=== PATIENT | male | born 1945 | race Hispanic/Latino ===

== ENCOUNTER 2023-10-12 05:55 | Day surgery (SDC) | payer MEDICARE ==
[2023-10-10 12:35] VITALS: BMI 28.8
[2023-10-12] MEDS ORDERED: fentaNYL 50 mcg/mL 1 mL Vial ONE (06:09)
[2023-10-12] MEDS ORDERED: Adenosine 6 mg (2 mL) VIAL ONE (06:09)
[2023-10-12] MEDS ORDERED: Verapamil 5 MG/2 ML VIAL ONE (06:10)
[2023-10-12] MEDS ORDERED: Nitroglycerin 50 MG/250 ML BOT 0 ML ONE (06:10)
[2023-10-12] MEDS ORDERED: Heparin 10,000 UNITS/ 10 ML VIAL ONE (06:10)
[2023-10-12] MEDS ORDERED: Lidocaine 1% (PF) 30 ML VIAL ONE (06:10)
[2023-10-12] MEDS ORDERED: Midazolam HCl 2 mg/2 ml Vial ONE (06:10)
[2023-10-12] MEDS ORDERED: Adenosine 90 mg (30 mL) VIAL ONE (06:16)
[2023-10-12] MEDS ORDERED: Atropine Sulfate 1 mg/10 ml Syringe ONE (07:03)
[2023-10-12] MEDS ORDERED: Protamine Sulfate 50 MG/5 ML VIAL ONE (07:42)
[2023-10-12] MEDS ORDERED: Iopamidol 300 61% 100 ML VIAL FS ONE (12:17)
== END 2023-10-12 12:38 | disposition home or self-care (01) ==
LOC: SDC 05:55
PROVIDERS: ATTEND Internal Medicine Cardiovascular Disease
PROC: 4A023N7 Measurement of Cardiac Sampling and Pressure, Left Heart, Percutaneous Approach (ICD-10-PCS; principal; 2023-10-12)
DX: I25.119 Atherosclerotic heart disease of native coronary artery with unspecified angina pectoris (principal); E78.5 Hyperlipidemia, unspecified; I10 Essential (primary) hypertension; E11.9 Type 2 diabetes mellitus without complications; Z79.84 Long term (current) use of oral hypoglycemic drugs; Z79.899 Other long term (current) drug therapy; Z90.89 Acquired absence of other organs; Z98.890 Other specified postprocedural states
CPT/HCPCS: 85347 ×2; 93454; 93571; C1760; C1769 ×3; C1887; C1894 ×2; J3010; 99152; J0153; J0461; J1644; J2001; J2250; J2720; Q9967

== ENCOUNTER 2023-11-06 08:30 | Inpatient (IN) | payer MEDICARE ==
[2023-11-21] MEDS ORDERED: Dexamethasone 4 mg/ml Vial ONE (06:40)
[2023-11-21] MEDS ORDERED: Bupivacaine PF 0.5% 30 ML VIAL ONE (06:41)
[2023-11-21] MEDS ORDERED: Albumin 5% 500 ML ONE (06:41)
[2023-11-21] MEDS ORDERED: EPINEPHrine 1 MG/ML VIAL ONE (06:41)
[2023-11-21] MEDS ORDERED: PHENYLEPHRINE-NS 100 MCG/ML 10 ML SYRINGE ONE ×2 (06:41→07:05)
[2023-11-21] MEDS ORDERED: Lidocaine 2% PF 5 ML VIAL ONE (06:57)
[2023-11-21] MEDS ORDERED: CEFAZOLIN 1 GM VIAL ONE (06:57)
[2023-11-21] MEDS ORDERED: Lidocaine 2% PF 100 mg/5 ml Syringe ONE ×2 (06:57→07:39)
[2023-11-21] MEDS ORDERED: ePHEDrine Sulfate 50 MG/10 ML VIAL ONE (06:57)
[2023-11-21] MEDS ORDERED: PROPOFOL 20 ML ONE (06:57)
[2023-11-21] MEDS ORDERED: Norepinephrine 4 MG/4 ML VIAL ONE (06:57)
[2023-11-21] MEDS ORDERED: Rocuronium Bromide 10 MG/ML (10ML VIAL) ONE ×2 (06:57→08:27)
[2023-11-21] MEDS ORDERED: Fentanyl 250 MCG/5 ML VIAL ONE (06:57)
[2023-11-21] MEDS ORDERED: Midazolam HCl 2 mg/2 ml Vial ONE (06:58)
[2023-11-21] MEDS ORDERED: Aminocaproic Acid 5 GM/20 ML VIAL ONE ×2 (07:01→07:39)
[2023-11-21] MEDS ORDERED: Heparin 10,000 UNITS/1 ML VIAL 30,000 UNITS in Sodium Chloride 0.9% 1,000 ML FS SCH (07:30)
[2023-11-21] MEDS ORDERED: Calcium Chloride 1 GM/10 ML Abboject SYRINGE ONE (07:39)
[2023-11-21] MEDS ORDERED: Heparin 30,000 units/30 ml VIAL ONE (07:39)
[2023-11-21] MEDS ORDERED: Protamine Sulfate 250 MG/25 ML VIAL ONE (07:39)
[2023-11-21] MEDS ORDERED: Sodium Bicarb 50 mEq/50 ML VIAL ONE (07:39)
[2023-11-21] MEDS ORDERED: Heparin 5,000 UNITS/ML VIAL ONE (07:39)
[2023-11-21] MEDS ORDERED: Vancomycin 1 GM VIAL ONE (07:39)
[2023-11-21] MEDS ORDERED: Mannitol 12.5 GM/50 ML ONE (07:39)
[2023-11-21] MEDS ORDERED: Magnesium 5 GM/10 ML VIAL ONE (07:39)
[2023-11-21] MEDS ORDERED: Albumin 25% 25 GM (100 mL) BOT ONE (07:39)
[2023-11-21] MEDS ORDERED: Papaverine 60 MG/2 ML VIAL ONE (07:39)
[2023-11-21] MEDS ORDERED: Cardioplegic Soln 1,000 ML BAG ONE (07:39)
[2023-11-21] MEDS ORDERED: Potassium Chloride 60 mEq (30 mL) VIAL ONE (07:39)
[2023-11-21] MEDS ORDERED: Thrombin 5000 UNITS/5 ML VIAL ONE (07:39)
[2023-11-21] MEDS ORDERED: fentaNYL 50 mcg/mL 1 mL Vial ONE (08:15)
[2023-11-21] MEDS ORDERED: Esmolol 100 MG/10 ML VIAL ONE (08:17)
[2023-11-21] MEDS ORDERED: Insulin Regular 300 UNITS/3 ML VIAL ONE (09:35)
[2023-11-21] MEDS ORDERED: hydrALAZINE 20 MG/ML VIAL SLOW IVP PRN (12:28)
[2023-11-21] MEDS ORDERED: Hetastarch 6% 500 ML 500 ML IVPB PRN (12:28)
[2023-11-21] MEDS ORDERED: Potassium Chloride 20 MEQ (100 mL) BAG IVPB PRN (12:28)
[2023-11-21] MEDS ORDERED: NOREPINEPHRINE 8 MG/250 ML-D5W 250 ML IVPB PRN (12:28)
[2023-11-21] MEDS ORDERED: Guaifenesin DM 100-10/5 ML UDCUP PO PRN (12:28)
[2023-11-21] MEDS ORDERED: niCARdipine 25 MG in Sodium Chloride 0.9% 250 ML 250 ML IVPB PRN (12:28)
[2023-11-21] MEDS ORDERED: Ipratropium/Albuterol 3 ML NEB NEB PRN (12:28)
[2023-11-21] MEDS ORDERED: Mag-Al 1200 mg/1200 mg/30 ML UDCUP PO PRN (12:28)
[2023-11-21] MEDS ORDERED: Bisacodyl 5 MG TAB PO PRN (12:28)
[2023-11-21] MEDS ORDERED: Albumin 5% 12.5 GM (250 mL) BOT IVPB PRN (12:28)
[2023-11-21] MEDS ORDERED: Bisacodyl 10 MG SUPP PR PRN (12:28)
[2023-11-21] MEDS ORDERED: fentaNYL 50 mcg/mL 1 mL Vial SLOW IVP PRN (12:28)
[2023-11-21 12:59] LABS: Actual Bicarbonate (HCO3a) 20.6 mEq/L (22-28); Base Excess (BEa) -5.3 mEq/L (-2.0 to +3.0); CO2 Tension 41.7 mmHg (35.0-45.0); Calcium, Ionized (arterial) 1.18 mmol/L (1.12-1.30); Carboxyhemoglobin (COHb) 0.3 gm% (0.0-3.0); Hematocrit-ABG 32 % (42.0-52.0); O2 Tension (PaO2), arterial 117.8 mmHg (> 70.0); Potassium - ABG Lab 4.39 mmol/L (3.70-5.30); pH, Arterial 7.312 (7.35-7.45)
[2023-11-21] MEDS ORDERED: Dextrose 5% in Water 1,000 ML IV PRN (13:00)
[2023-11-21] MEDS ORDERED: Glucagon 1 MG/ML KIT SC PRN (13:00)
[2023-11-21] MEDS ORDERED: Dextrose 50% Abboject 50 ML SYRINGE SLOW IVP PRN (13:00)
[2023-11-21 13:01] LABS: ALV-art Gradient 257.875 mmHg (0-20); Puncture Site Arterial Line
[2023-11-21 13:16] LABS: #Neutrophils 14.1 thou/uL (1.40-6.50); %Basophils 0.2 % (0.0-1.0); %Eosinophils 0.2 % (0.0-10.0); %Lymphocytes 10.1 % (21.0-51.0); %Neutrophils 82.9 % (42.0-75.0); Hematocrit 30.3 % (42.0-52.0); Hemoglobin 10.1 g/dL (14.0-18.0); Mean Corpuscular HGB CONC 33.3 g/dL (32.0-36.0); Mean Corpuscular Hemoglobin 31.7 pg (27.0-31.0); Mean Platelet Volume 9.8 fL (7.4-10.4); Platelet Count 189 10x3/uL (130-400); RBC Distribution Width 12.8 % (11.5-14.5); Red Blood Cell (RBC) Count 3.19 mill/uL (4.70-6.10)
[2023-11-21] MEDS: Post-Op Insulin Drip Protocol IVPB ONE (13:28)
[2023-11-21] MEDS: Insulin Regular 300 UNITS/3 ML VIAL SC PRN (13:29)
[2023-11-21] MEDS: NOREPINEPHRINE 8 MG/250 ML-D5W 250 ML ONE (13:29)
[2023-11-21] MEDS: Sodium Chloride 0.9% 1,000 ML IV SCH (13:29)
[2023-11-21] MEDS: Magnesium 2 GM/50 ML(in water) 2 GM in Premix 1 BAG IVPB SCH (13:32)
[2023-11-21 13:35] LABS: INR-International Normal Ratio 1.4; Prothrombin Time 17.3 sec (12.0-14.7)
[2023-11-21 13:36] LABS: PTT 45.9 sec (22.9-36.1)
[2023-11-21 13:41] LABS: Anion Gap 9 mmol/L (10-20); BUN (Urea Nitrogen) 14 mg/dL (8.4-25.7); Calc. Creatinine Clearance 66 mL/min (70-130); Calcium 8.1 mg/dL (7.8-10.44); Carbon Dioxide 23 mmol/L (23-31); Chloride 113 mmol/L (98-107); Estimated GFR 69; Glucose 171 mg/dL (83-110); Potassium 4.4 mmol/L (3.5-5.1); Sodium 141 mmol/L (136-145)
[2023-11-21] MEDS: fentaNYL 50 mcg/mL 1 mL Vial SLOW IVP PRN (14:07)
[2023-11-21 14:09] LABS: Analyzer IN Cardio OR; Base Excess (BEa) -3.7 mEq/L (-2.0 to +3.0); CO2 Tension 42.6 mmHg (35.0-45.0); Calcium, Ionized (arterial) 1.01 mmol/L (1.12-1.30); Carboxyhemoglobin (COHb) 0.3 gm% (0.0-3.0); Hematocrit-ABG 28 % (42.0-52.0); Hemoglobin (Hb) 9.6 g/dL (14.0-18.0); O2 Tension (PaO2), arterial 327.2 mmHg (> 70.0); Potassium - ABG Lab 5.78 mmol/L (3.70-5.30); pH, Arterial 7.331 (7.35-7.45)
[2023-11-21 14:09] LABS: Actual Bicarbonate (HCO3a) 21.5 mEq/L (22-28); Analyzer IN Cardio OR; Base Excess (BEa) -3.2 mEq/L (-2.0 to +3.0); CO2 Tension 37.4 mmHg (35.0-45.0); Carboxyhemoglobin (COHb) 0.4 gm% (0.0-3.0); Hematocrit-ABG 38 % (42.0-52.0); O2 Tension (PaO2), arterial 447.7 mmHg (> 70.0); Potassium - ABG Lab 4.89 mmol/L (3.70-5.30); pH, Arterial 7.377 (7.35-7.45)
[2023-11-21 14:09] LABS: Actual Bicarbonate (HCO3a) 20.7 mEq/L (22-28); Analyzer IN Cardio OR; Base Excess (BEa) -3.7 mEq/L (-2.0 to +3.0); CO2 Tension 35.7 mmHg (35.0-45.0); Calcium, Ionized (arterial) 1.16 mmol/L (1.12-1.30); Carboxyhemoglobin (COHb) 0.5 gm% (0.0-3.0); Hematocrit-ABG 40 % (42.0-52.0); Hemoglobin (Hb) 13.7 g/dL (14.0-18.0); Potassium - ABG Lab 4.38 mmol/L (3.70-5.30); pH, Arterial 7.381 (7.35-7.45)
[2023-11-21 14:09] LABS: Actual Bicarbonate (HCO3a) 23.8 mEq/L (22-28); Analyzer IN Cardio OR; Base Excess (BEa) -2.2 mEq/L (-2.0 to +3.0); CO2 Tension 45.9 mmHg (35.0-45.0); Calcium, Ionized (arterial) 0.96 mmol/L (1.12-1.30); Carboxyhemoglobin (COHb) 0.3 gm% (0.0-3.0); Hematocrit-ABG 30 % (42.0-52.0); Hemoglobin (Hb) 10.3 g/dL (14.0-18.0); O2 Tension (PaO2), arterial 302.7 mmHg (> 70.0); Potassium - ABG Lab 4.97 mmol/L (3.70-5.30); pH, Arterial 7.332 (7.35-7.45)
[2023-11-21] MEDS: Nitroglycerin 50 MG/250 ML BOT 250 ML IVPB PRN (14:09)
[2023-11-21 14:10] LABS: Actual Bicarbonate (HCO3a) 18.7 mEq/L (22-28); Analyzer IN Cardio OR; Base Excess (BEa) -6.7 mEq/L (-2.0 to +3.0); CO2 Tension 36.8 mmHg (35.0-45.0); Calcium, Ionized (arterial) 1.12 mmol/L (1.12-1.30); Hematocrit-ABG 33 % (42.0-52.0); Hemoglobin (Hb) 11.1 g/dL (14.0-18.0); O2 Tension (PaO2), arterial 227.5 mmHg (> 70.0); Potassium - ABG Lab 4.15 mmol/L (3.70-5.30); pH, Arterial 7.324 (7.35-7.45)
[2023-11-21 14:10] LABS: Actual Bicarbonate (HCO3a) 22.2 mEq/L (22-28); Analyzer IN Cardio OR; Base Excess (BEa) -3.5 mEq/L (-2.0 to +3.0); CO2 Tension 42.8 mmHg (35.0-45.0); Calcium, Ionized (arterial) 1.17 mmol/L (1.12-1.30); Carboxyhemoglobin (COHb) 0.5 gm% (0.0-3.0); Hematocrit-ABG 28 % (42.0-52.0); Hemoglobin (Hb) 9.4 g/dL (14.0-18.0); O2 Tension (PaO2), arterial 227.8 mmHg (> 70.0); Potassium - ABG Lab 4.36 mmol/L (3.70-5.30); pH, Arterial 7.332 (7.35-7.45)
[2023-11-21 14:10] LABS: Actual Bicarbonate (HCO3a) 23.3 mEq/L (22-28); Analyzer IN Cardio OR; Base Excess (BEa) -3.2 mEq/L (-2.0 to +3.0); CO2 Tension 48.7 mmHg (35.0-45.0); Calcium, Ionized (arterial) 1.03 mmol/L (1.12-1.30); Carboxyhemoglobin (COHb) 0.3 gm% (0.0-3.0); Hematocrit-ABG 29 % (42.0-52.0); O2 Tension (PaO2), arterial 265.1 mmHg (> 70.0); Potassium - ABG Lab 5.08 mmol/L (3.70-5.30); pH, Arterial 7.298 (7.35-7.45)
[2023-11-21 14:10] LABS: Puncture Site Arterial Line
[2023-11-21 14:11] LABS: Puncture Site Arterial Line
[2023-11-21 14:11] LABS: Puncture Site Arterial Line
[2023-11-21 14:11] LABS: Puncture Site Arterial Line
[2023-11-21 14:12] LABS: Puncture Site Arterial Line
[2023-11-21 14:12] LABS: Puncture Site Arterial Line
[2023-11-21 14:12] LABS: Puncture Site Arterial Line
[2023-11-21] MEDS: CEFAZOLIN 2 GM in Sodium Chloride 0.9% 100 ML IVPB SCH ×2 (14:37→16:23)
[2023-11-21] MEDS: Protamine Sulfate 50 MG/5 ML VIAL SLOW IVP SCH (15:13)
[2023-11-21 15:56] LABS: Actual Bicarbonate (HCO3a) 18.7 mEq/L (22-28); Base Excess (BEa) -6.7 mEq/L (-2.0 to +3.0); CO2 Tension 37.3 mmHg (35.0-45.0); Calcium, Ionized (arterial) 1.15 mmol/L (1.12-1.30); Carboxyhemoglobin (COHb) 0.4 gm% (0.0-3.0); Hematocrit-ABG 34 % (42.0-52.0); Hemoglobin (Hb) 11.6 g/dL (14.0-18.0); O2 Tension (PaO2), arterial 105.6 mmHg (> 70.0); Potassium - ABG Lab 4.33 mmol/L (3.70-5.30); pH, Arterial 7.319 (7.35-7.45)
[2023-11-21] MEDS: HUMULIN R 100 UNITS in Sodium Chloride 0.9% 100 ML IVPB SCH (15:56)
[2023-11-21 16:07] LABS: #Monocytes 0.7 thou/uL (0.11-0.59); #Neutrophils 16.3 thou/uL (1.40-6.50); %Basophils 0.2 % (0.0-1.0); %Eosinophils 0.2 % (0.0-10.0); %Lymphocytes 5.9 % (21.0-51.0); %Monocytes 3.9 % (0.0-10.0); %Neutrophils 89.3 % (42.0-75.0); Hematocrit 33.8 % (42.0-52.0); Hemoglobin 11.2 g/dL (14.0-18.0); Mean Corpuscular HGB CONC 33.1 g/dL (32.0-36.0); Mean Corpuscular Hemoglobin 31.4 pg (27.0-31.0); Mean Corpuscular Volume 94.7 fl (78.0-98.0); Mean Platelet Volume 9.8 fL (7.4-10.4); Platelet Count 232 10x3/uL (130-400); RBC Distribution Width 13.1 % (11.5-14.5); Red Blood Cell (RBC) Count 3.57 mill/uL (4.70-6.10); White Blood Cell (WBC) Count 18.2 10x3/uL (4.8-10.8)
[2023-11-21 16:09] LABS: ALV-art Gradient 132.975 mmHg (0-20); Puncture Site Arterial Line
[2023-11-21] MEDS: Albumin 5% 12.5 GM (250 mL) BOT IVPB PRN (16:14)
[2023-11-21 19:07] LABS: Hemoglobin 9.7 g/dL (14.0-18.0)
[2023-11-21 19:22] LABS: Potassium 4.2 mmol/L (3.5-5.1)
[2023-11-21] MEDS: Atorvastatin Calcium 10 MG TAB PO SCH (20:08)
[2023-11-21] MEDS: Famotidine/PF 20 mg/2ml Vial SLOW IVP SCH (20:08)
[2023-11-22] MEDS: HYDROcodone/Acetaminophen 5/325 mg Tablet PO PRN ×2 (00:24→06:46)
[2023-11-22] MEDS: Ondansetron PF 4 MG/2 ML Vial IVP PRN (03:28)
[2023-11-22 04:49] LABS: #Monocytes 1.5 thou/uL (0.11-0.59); #Neutrophils 15.5 thou/uL (1.40-6.50); %Basophils 0.1 % (0.0-1.0); %Lymphocytes 7.1 % (21.0-51.0); %Monocytes 8.2 % (0.0-10.0); Mean Corpuscular HGB CONC 32.3 g/dL (32.0-36.0); Mean Corpuscular Hemoglobin 30.9 pg (27.0-31.0); Mean Corpuscular Volume 95.7 fl (78.0-98.0); Mean Platelet Volume 10.1 fL (7.4-10.4); Platelet Count 231 10x3/uL (130-400); RBC Distribution Width 13.2 % (11.5-14.5); Red Blood Cell (RBC) Count 3.24 mill/uL (4.70-6.10); White Blood Cell (WBC) Count 18.5 10x3/uL (4.8-10.8)
[2023-11-22 05:02] LABS: Anion Gap 10 mmol/L (10-20); BUN (Urea Nitrogen) 15 mg/dL (8.4-25.7); Calc. Creatinine Clearance 61 mL/min (70-130); Carbon Dioxide 25 mmol/L (23-31); Chloride 112 mmol/L (98-107); Estimated GFR 60; Glucose 173 mg/dL (83-110); Potassium 4.5 mmol/L (3.5-5.1); Sodium 142 mmol/L (136-145)
[2023-11-22] MEDS ORDERED: Bisacodyl 5 MG TAB PO PRN (06:55)
[2023-11-22] MEDS ORDERED: Artificial Tear Sol 15 ML BOT EA EYE PRN (06:55)
[2023-11-22] MEDS ORDERED: Nitroglycerin 0.4 MG TAB (25 Tab Bottle) SL PRN (06:55)
[2023-11-22] MEDS ORDERED: Mineral Oil ENEMA PR PRN (06:55)
[2023-11-22] MEDS ORDERED: diphenhydrAMINE 25 MG CAP PO PRN (06:55)
[2023-11-22] MEDS ORDERED: Zolpidem Tartrate 5 MG TAB PO PRN (06:55)
[2023-11-22] MEDS ORDERED: Guaifenesin DM 100-10/5 ML UDCUP PO PRN (06:55)
[2023-11-22] MEDS ORDERED: Mag-Al 1200 mg/1200 mg/30 ML UDCUP PO PRN (06:55)
[2023-11-22] MEDS ORDERED: Bisacodyl 10 MG SUPP PR PRN (06:55)
[2023-11-22] MEDS: Tamsulosin HCl 0.4 MG CAP PO SCH (08:10)
[2023-11-22] MEDS: Famotidine 20 MG TAB PO SCH (08:10)
[2023-11-22] MEDS: Metoprolol Tartrate 25 MG TAB PO SCH (08:10)
[2023-11-22] MEDS: Aspirin 325 mg Enteric Coated Tablet PO SCH (08:10)
[2023-11-22] MEDS: Promethazine HCl 25 MG/ML VIAL IM PRN (08:29)
[2023-11-22] MEDS ORDERED: Aspirin Chewable 81 MG TAB PO SCH (09:00)
[2023-11-22] MEDS: Ipratropium/Albuterol 3 ML NEB NEB SCH (10:21)
[2023-11-22] MEDS ORDERED: Insulin Glargine 30 UNITS/0.3 ML VIAL SC PRN (12:52)
[2023-11-22 22:39] VITALS: BMI 31.6
[2023-11-23 05:20] LABS: #Monocytes 1.3 thou/uL (0.11-0.59); #Neutrophils 13.2 thou/uL (1.40-6.50); %Basophils 0.2 % (0.0-1.0); %Eosinophils 0.2 % (0.0-10.0); %Lymphocytes 15.8 % (21.0-51.0); %Monocytes 7.4 % (0.0-10.0); %Neutrophils 75.9 % (42.0-75.0); Hematocrit 29.2 % (42.0-52.0); Hemoglobin 9.3 g/dL (14.0-18.0); Mean Corpuscular HGB CONC 31.8 g/dL (32.0-36.0); Mean Corpuscular Hemoglobin 31.4 pg (27.0-31.0); Mean Corpuscular Volume 98.6 fl (78.0-98.0); Mean Platelet Volume 10.3 fL (7.4-10.4); Platelet Count 204 10x3/uL (130-400); RBC Distribution Width 13.9 % (11.5-14.5); Red Blood Cell (RBC) Count 2.96 mill/uL (4.70-6.10); White Blood Cell (WBC) Count 17.4 10x3/uL (4.8-10.8)
[2023-11-23 05:37] LABS: Anion Gap 10 mmol/L (10-20); BUN (Urea Nitrogen) 21 mg/dL (8.4-25.7); Calc. Creatinine Clearance 56 mL/min (70-130); Calcium 8.2 mg/dL (7.8-10.44); Carbon Dioxide 23 mmol/L (23-31); Chloride 110 mmol/L (98-107); Estimated GFR 55; Glucose 181 mg/dL (83-110); Potassium 4.6 mmol/L (3.5-5.1); Sodium 138 mmol/L (136-145)
[2023-11-23] MEDS: Senokot S 8.6-50 MG TAB PO SCH (07:50)
[2023-11-23] MEDS: Furosemide 20 MG (2 mL) VIAL SLOW IVP SCH (07:50)
[2023-11-23] MEDS: Metoprolol Tartrate 25 MG TAB PO SCH (07:50)
[2023-11-23] MEDS ORDERED: PROPOFOL 0 ML ONE ×2 (11:32→12:07)
[2023-11-23] MEDS ORDERED: Lidocaine 1% PF 5 ML VIAL ONE (11:32)
[2023-11-23] MEDS ORDERED: fentaNYL PF 100 MCG/2 ML SYRINGE ONE (12:08)
[2023-11-24 04:16] LABS: #Eosinphils 0.2 thou/uL (0.0-0.7); #Neutrophils 10.7 thou/uL (1.40-6.50); %Basophils 0.2 % (0.0-1.0); %Eosinophils 1.4 % (0.0-10.0); %Lymphocytes 14.5 % (21.0-51.0); %Monocytes 7.4 % (0.0-10.0); %Neutrophils 76.1 % (42.0-75.0); Hematocrit 28.9 % (42.0-52.0); Hemoglobin 9.1 g/dL (14.0-18.0); Mean Corpuscular HGB CONC 31.5 g/dL (32.0-36.0); Mean Corpuscular Hemoglobin 30.3 pg (27.0-31.0); Mean Corpuscular Volume 96.3 fl (78.0-98.0); Mean Platelet Volume 9.8 fL (7.4-10.4); Platelet Count 210 10x3/uL (130-400); RBC Distribution Width 13.8 % (11.5-14.5)
[2023-11-24 04:42] LABS: Phosphorus 2.4 mg/dL (2.3-4.7)
[2023-11-24 04:43] LABS: Anion Gap 10 mmol/L (10-20); BUN (Urea Nitrogen) 24 mg/dL (8.4-25.7); Calc. Creatinine Clearance 59 mL/min (70-130); Calcium 8.1 mg/dL (7.8-10.44); Carbon Dioxide 26 mmol/L (23-31); Chloride 106 mmol/L (98-107); Estimated GFR 61; Glucose 186 mg/dL (83-110); Magnesium 2.2 mg/dL (1.6-2.6); Potassium 4.4 mmol/L (3.5-5.1); Sodium 138 mmol/L (136-145)
[2023-11-24] MEDS: Acetaminophen 325 MG TAB PO PRN (13:56)
[2023-11-24] MEDS: FLU VACC QS2023(65UP)/MF59C/PF 60 MCG/0.5 ML SYRINGE IM ONE (14:21)
[2023-11-25 06:03] LABS: #Eosinphils 0.3 thou/uL (0.0-0.7); #Neutrophils 8.9 thou/uL (1.40-6.50); %Basophils 0.2 % (0.0-1.0); %Eosinophils 2.3 % (0.0-10.0); %Lymphocytes 18.7 % (21.0-51.0); %Monocytes 7.5 % (0.0-10.0); %Neutrophils 70.6 % (42.0-75.0); Hematocrit 28.7 % (42.0-52.0); Hemoglobin 9.4 g/dL (14.0-18.0); Mean Corpuscular HGB CONC 32.8 g/dL (32.0-36.0); Mean Corpuscular Hemoglobin 31.2 pg (27.0-31.0); Mean Corpuscular Volume 95.3 fl (78.0-98.0); Platelet Count 283 10x3/uL (130-400); RBC Distribution Width 13.4 % (11.5-14.5); Red Blood Cell (RBC) Count 3.01 mill/uL (4.70-6.10); White Blood Cell (WBC) Count 12.6 10x3/uL (4.8-10.8)
[2023-11-25 06:31] LABS: Anion Gap 10 mmol/L (10-20); BUN (Urea Nitrogen) 19 mg/dL (8.4-25.7); Calc. Creatinine Clearance 65 mL/min (70-130); Calcium 8.6 mg/dL (7.8-10.44); Carbon Dioxide 26 mmol/L (23-31); Chloride 104 mmol/L (98-107); Estimated GFR 69; Glucose 151 mg/dL (83-110); Potassium 4.4 mmol/L (3.5-5.1); Sodium 136 mmol/L (136-145)
[2023-11-25] MEDS: Metoprolol Tartrate 25 MG TAB PO SCH ×2 (09:59→21:18)
[2023-11-26 06:38] LABS: #Eosinphils 0.5 thou/uL (0.0-0.7); #Monocytes 1.1 thou/uL (0.11-0.59); #Neutrophils 7.6 thou/uL (1.40-6.50); %Basophils 0.3 % (0.0-1.0); %Lymphocytes 19.7 % (21.0-51.0); %Monocytes 9.1 % (0.0-10.0); %Neutrophils 66.1 % (42.0-75.0); Hematocrit 31.3 % (42.0-52.0); Hemoglobin 10.2 g/dL (14.0-18.0); Mean Corpuscular HGB CONC 32.6 g/dL (32.0-36.0); Mean Corpuscular Hemoglobin 30.6 pg (27.0-31.0); Mean Platelet Volume 9.8 fL (7.4-10.4); Platelet Count 338 10x3/uL (130-400); RBC Distribution Width 13.4 % (11.5-14.5); Red Blood Cell (RBC) Count 3.33 mill/uL (4.70-6.10); White Blood Cell (WBC) Count 11.5 10x3/uL (4.8-10.8)
[2023-11-26 06:58] LABS: Anion Gap 8 mmol/L (10-20); BUN (Urea Nitrogen) 20 mg/dL (8.4-25.7); Calc. Creatinine Clearance 59 mL/min (70-130); Calcium 8.6 mg/dL (7.8-10.44); Carbon Dioxide 30 mmol/L (23-31); Chloride 104 mmol/L (98-107); Estimated GFR 63; Glucose 140 mg/dL (83-110); Potassium 4.4 mmol/L (3.5-5.1); Sodium 138 mmol/L (136-145)
[2023-11-26] MEDS: metFORMIN 500 MG TAB PO SCH (08:52)
[2023-11-26 12:04] VITALS: BP 120/56; TEMP 98.5
== END 2023-11-26 13:51 | disposition home or self-care (01) | DRG 236 ==
LOC: SURG A 11-21 06:20 → CCU 11-21 13:00 → 2NO 11-24 21:27
PROVIDERS: ADMIT Student in an Organized Health Care Education/Training Program; ATTEND Student in an Organized Health Care Education/Training Program
PROC: 02100Z9 Bypass Coronary Artery, One Artery from Left Internal Mammary, Open Approach (ICD-10-PCS; principal; 2023-11-21)
PROC: 021109W Bypass Coronary Artery, Two Arteries from Aorta with Autologous Venous Tissue, Open Approach (ICD-10-PCS; 2023-11-21)
PROC: 06BQ4ZZ Excision of Left Saphenous Vein, Percutaneous Endoscopic Approach (ICD-10-PCS; 2023-11-21)
PROC: 5A1221Z Performance of Cardiac Output, Continuous (ICD-10-PCS; 2023-11-21)
PROC: 02L70CK Occlusion of Left Atrial Appendage with Extraluminal Device, Open Approach (ICD-10-PCS; 2023-11-21)
PROC: 4A133R1 Monitoring of Arterial Saturation, Peripheral, Percutaneous Approach (ICD-10-PCS; 2023-11-21)
PROC: 30233J1 Transfusion of Nonautologous Serum Albumin into Peripheral Vein, Percutaneous Approach (ICD-10-PCS; 2023-11-21)
PROC: 3E033XZ Introduction of Vasopressor into Peripheral Vein, Percutaneous Approach (ICD-10-PCS; 2023-11-21)
DX: I25.110 Atherosclerotic heart disease of native coronary artery with unstable angina pectoris (principal); N17.9 Acute kidney failure, unspecified; E78.5 Hyperlipidemia, unspecified; M51.36 Other intervertebral disc degeneration, lumbar region; Z79.899 Other long term (current) drug therapy; Z90.49 Acquired absence of other specified parts of digestive tract; Z98.890 Other specified postprocedural states; Z83.3 Family history of diabetes mellitus; Z01.818 Encounter for other preprocedural examination
CPT/HCPCS: 36415; 36416; 71045; 71046; 80048; 82805; 83735; 84100; 85025; 85027; 85610; 85730; 86850; 86900; 86901; 93005; 93010; 93798; 94002; 94640; A4311; A4648; C1751; J0171; J0665; J0690; J1100; J1642; J1644; J1815; J1940; J2001; J2150; J2250; J2405; J2440; J2550; J2704; J2720; J3010; J3370; J3475; J3480; J3490; J7050; J7620; P9045; P9047; S0017; S0028

== ENCOUNTER 2023-11-20 09:07 | Outpatient (CLI) | payer MEDICARE ==
[2023-11-20 10:58] LABS: Hematocrit 43.4 % (38.8-50.0); Hemoglobin 14.9 g/dL (13.5-17.5); Mean Corpuscular HGB CONC 34.3 g/dL (32.0-36.0); Mean Corpuscular Hemoglobin 31.7 pg (27.0-33.0); Mean Corpuscular Volume 92.3 fl (81.2-95.1); Mean Platelet Volume 9.8 fl (7.4-10.4); Platelet Count 338 10x3/uL (150-450); RBC Distribution Width 12.6 % (11.5-14.5); White Blood Cell (WBC) Count 9.5 10x3/uL (3.5-10.5)
[2023-11-20 11:31] LABS: Anion Gap 15 mmol/L (10-20); BUN (Urea Nitrogen) 16 mg/dL (8.4-25.7); Calc. Creatinine Clearance 0 mL/min (70-130); Calcium 9.4 mg/dL (7.8-10.44); Carbon Dioxide 24 mmol/L (23-31); Chloride 104 mmol/L (98-107); Estimated GFR 56; Glucose 138 mg/dL (83-110); Potassium 5.2 mmol/L (3.5-5.1); Sodium 138 mmol/L (136-145)
== END 2023-11-20 09:08 | disposition home or self-care (01) ==
LOC: LABBT 09:07
PROVIDERS: ATTEND Student in an Organized Health Care Education/Training Program
DX: Z01.818 Encounter for other preprocedural examination (principal); I25.10 Atherosclerotic heart disease of native coronary artery without angina pectoris
CPT/HCPCS: 71046; 80048; 85027; 86850; 86900; 86901; 93005; 93010

== ENCOUNTER 2024-10-31 20:33 | Inpatient (IN) | payer MEDICARE ==
[2024-10-31] MEDS ORDERED: NOREPINEPHRINE 8 MG/250 ML-D5W 250 ML IVPB SCH (23:45)
[2024-10-31] MEDS: Sodium Chloride 0.9% 1,000 ML IV SCH (23:46)
[2024-10-31] MEDS ORDERED: Acetaminophen 325 MG TAB PO PRN (23:52)
[2024-10-31] MEDS ORDERED: Ondansetron PF 4 MG/2 ML Vial IVP PRN (23:52)
[2024-11-01] MEDS ORDERED: Ipratropium/Albuterol 3 ML NEB NEB PRN (00:08)
[2024-11-01] MEDS ORDERED: Dextrose 5% in Water 1,000 ML IV PRN (00:13)
[2024-11-01] MEDS ORDERED: Dextrose 50% Abboject 50 ML SYRINGE SLOW IVP PRN (00:13)
[2024-11-01] MEDS ORDERED: Insulin Lispro 100 UNIT/ML 10 ML VIAL SC PRN ×2 (00:13)
[2024-11-01] MEDS ORDERED: Glucagon 1 MG/ML KIT IM PRN (00:13)
[2024-11-01] MEDS: Sodium Chloride 0.9% 1,000 ML IV SCH (01:40)
[2024-11-01 03:49] VITALS: BMI 31.2
[2024-11-01 04:06] LABS: Hematocrit 35.1 % (42.0-52.0); Hemoglobin 11.4 g/dL (14.0-18.0); Mean Corpuscular HGB CONC 32.5 g/dL (32.0-36.0); Mean Corpuscular Hemoglobin 29.6 pg (27.0-31.0); Mean Corpuscular Volume 91.2 fL (78.0-98.0); Mean Platelet Volume 9.6 fL (7.4-10.4); Platelet Count 282 10x3/uL (130-400); RBC Distribution Width 14.8 % (11.5-14.5); Red Blood Cell (RBC) Count 3.85 mill/uL (4.70-6.10)
[2024-11-01 04:23] LABS: Lactic Acid 1.16 mmol/L (0.50-2.20)
[2024-11-01 04:23] LABS: ALT (SGPT) 9 U/L (Less than 45); AST (SGOT) 16 U/L (11-34); Albumin 2.7 g/dL (3.1-4.5); Alkaline Phosphatase 59 U/L (40-110); Anion Gap 12 mmol/L (10-20); BUN (Urea Nitrogen) 19 mg/dL (8.4-25.7); Bilirubin, Total 0.6 mg/dL (0.3-1.2); Calc. Creatinine Clearance 54 mL/min (70-130); Calcium 7.8 mg/dL (7.8-10.44); Carbon Dioxide 21 mmol/L (23-31); Chloride 110 mmol/L (98-107); Estimated GFR 56; Globulin 3.3 g/dL (2.4-3.5); Glucose 122 mg/dL (83-110); Potassium 3.9 mmol/L (3.5-5.1); Sodium 139 mmol/L (136-145)
[2024-11-01 04:35] LABS: Band 28 % (5-11); Hypochromia SLIGHT = 6-15 cells HPF (0-5); Lymphocytes 6 % (21-51); Metamyelocyte 1 % (0-0); Monocytes 3 % (0-10); Neutrophil 63 % (42-75); Platelet Adequacy Comment Platelets Normal; Polychromasia SLIGHT = 2-3 cells HPF (0-2)
[2024-11-01 04:38] LABS: Legionella Urinary Ag Negative (Negative); Strep pneumo Urine Ag NEGATIVE (NEGATIVE)
[2024-11-01] MEDS: Sodium Chloride 0.9% 500 ML IVPB SCH (05:08)
[2024-11-01] MEDS: Albumin 25% 25 GM (100 mL) BOT IVPB SCH (06:13)
[2024-11-01] MEDS: Heparin 5,000 UNITS/ML VIAL SC SCH (08:16)
[2024-11-01] MEDS: cefTRIAXone\\ROCEPHIN 2 GM in Sodium Chloride 0.9% 100 ML IVPB SCH (08:16)
[2024-11-01] MEDS: Azithromycin 500 MG in Sodium Chloride 0.9% 250 ML 250 ML IVPB SCH (16:13)
[2024-11-01] MEDS: Polyvinyl Alcohol 1.4%/Povidone 0.6% Opth Drops EA EYE SCH (23:18)
[2024-11-02 05:29] LABS: #Basophils 0.05 10x3/uL (0.0-0.2); %Basophils 0.3 % (0.0-1.0); %Eosinophils 0.8 % (0.0-10.0); %Lymphocytes 9.8 % (21.0-51.0); %Monocytes 3.5 % (0.0-10.0); Hematocrit 37.2 % (42.0-52.0); Hemoglobin 12.1 g/dL (14.0-18.0); Mean Corpuscular HGB CONC 32.5 g/dL (32.0-36.0); Mean Corpuscular Hemoglobin 29.4 pg (27.0-31.0); Mean Corpuscular Volume 90.3 fL (78.0-98.0); Platelet Count 245 10x3/uL (130-400); RBC Distribution Width 14.9 % (11.5-14.5); Red Blood Cell (RBC) Count 4.12 mill/uL (4.70-6.10)
[2024-11-02 05:52] LABS: ALT (SGPT) 11 U/L (Less than 45); AST (SGOT) 18 U/L (11-34); Albumin 2.8 g/dL (3.1-4.5); Alkaline Phosphatase 72 U/L (40-110); Anion Gap 15 mmol/L (10-20); BUN (Urea Nitrogen) 15 mg/dL (8.4-25.7); Bilirubin, Total 0.3 mg/dL (0.3-1.2); Calc. Creatinine Clearance 67 mL/min (70-130); Calcium 8.3 mg/dL (7.8-10.44); Carbon Dioxide 17 mmol/L (23-31); Chloride 111 mmol/L (98-107); Estimated GFR 71; Globulin 3.3 g/dL (2.4-3.5); Glucose 123 mg/dL (83-110); Potassium 3.9 mmol/L (3.5-5.1); Protein, Total 6.1 g/dL (5.8-8.1); Sodium 139 mmol/L (136-145)
[2024-11-02] MEDS: Primidone 50 MG TAB PO SCH (20:53)
[2024-11-02] MEDS: Atorvastatin Calcium 10 MG TAB PO SCH (20:54)
[2024-11-03 06:10] LABS: #Basophils 0.05 10x3/uL (0.0-0.2); %Basophils 0.5 % (0.0-1.0); %Eosinophils 2.8 % (0.0-10.0); %Lymphocytes 17.1 % (21.0-51.0); %Monocytes 4.7 % (0.0-10.0); %Neutrophils 74.3 % (42.0-75.0); Hematocrit 39.6 % (42.0-52.0); Mean Corpuscular HGB CONC 32.8 g/dL (32.0-36.0); Mean Corpuscular Volume 88.2 fL (78.0-98.0); Mean Platelet Volume 9.6 fL (7.4-10.4); Platelet Count 316 10x3/uL (130-400); RBC Distribution Width 14.5 % (11.5-14.5); Red Blood Cell (RBC) Count 4.49 mill/uL (4.70-6.10)
[2024-11-03 06:27] LABS: ALT (SGPT) 17 U/L (Less than 45); AST (SGOT) 21 U/L (11-34); Alkaline Phosphatase 83 U/L (40-110); Anion Gap 14 mmol/L (10-20); BUN (Urea Nitrogen) 16 mg/dL (8.4-25.7); Bilirubin, Total 0.4 mg/dL (0.3-1.2); Calc. Creatinine Clearance 66 mL/min (70-130); Calcium 8.9 mg/dL (7.8-10.44); Carbon Dioxide 19 mmol/L (23-31); Chloride 110 mmol/L (98-107); Estimated GFR 70; Globulin 3.9 g/dL (2.4-3.5); Glucose 139 mg/dL (83-110); Potassium 3.7 mmol/L (3.5-5.1); Protein, Total 6.9 g/dL (5.8-8.1); Sodium 139 mmol/L (136-145)
[2024-11-03 07:21] VITALS: TEMP 98.2
[2024-11-03] MEDS: Aspirin Chewable 81 MG TAB PO SCH (08:08)
[2024-11-03 11:41] VITALS: BP 117/75
== END 2024-11-03 12:34 | disposition home or self-care (01) | DRG 871 ==
LOC: CCU 21:29 → T4-A 11-01 18:36
PROVIDERS: ADMIT Internal Medicine; ATTEND Internal Medicine
PROC: 3E03329 Introduction of Other Anti-infective into Peripheral Vein, Percutaneous Approach (ICD-10-PCS; principal; 2024-10-31)
PROC: 30233J1 Transfusion of Nonautologous Serum Albumin into Peripheral Vein, Percutaneous Approach (ICD-10-PCS; 2024-11-01)
DX: A41.9 Sepsis, unspecified organism (principal); J18.9 Pneumonia, unspecified organism; R65.21 Severe sepsis with septic shock; J96.01 Acute respiratory failure with hypoxia; N17.9 Acute kidney failure, unspecified; I12.9 Hypertensive chronic kidney disease with stage 1 through stage 4 chronic kidney disease, or unspecified chronic kidney disease; E11.22 Type 2 diabetes mellitus with diabetic chronic kidney disease; N18.30 Chronic kidney disease, stage 3 unspecified; I25.10 Atherosclerotic heart disease of native coronary artery without angina pectoris; Z90.49 Acquired absence of other specified parts of digestive tract; Z95.1 Presence of aortocoronary bypass graft
CPT/HCPCS: 36415; 36416; 71045; 74177; 80053; 81001; 83605; 83690; 83735; 83880; 84145; 85025; 87040; 87070; 87086; 87205; 87428; 87449; 87899; 93005; J0456; J0696; J1644; J2405; J7030; J7050; P9047; Q9967